=== PATIENT | male | born 1970 | race Caucasian/White ===

== ENCOUNTER 2023-08-24 17:16 | Emergency (ER) | payer OTHER ==
[~2023-08-24] VITALS: Ht 175.3 cm; Wt 75.0 kg
[~2023-08-24 17:16] MED LIST: INSLAN SQ; LOSA-381 PO
[2023-08-24 17:18] VITALS: BP 114/71; PULSE 79; RESP 18; TEMP 98.3
[2023-08-24] MEDS ORDERED: ATOR10TA69 PO (17:21)
[2023-08-24] MEDS ORDERED: METF-446 PO (17:21)
[2023-08-24] MEDS ORDERED: EMPA10TA3 PO (17:28)
[2023-08-24 17:40] LABS: GLUCOMETER DEV NAME(LOC) ER.7; GLUCOSE,POINT OF CARE 374 MG/DL (70-110)
[2023-08-24] MEDS ORDERED: LOSA-382 PO (20:22)
[2023-08-24] MEDS: CEPHALEXIN MONOHYDRATE 500 MG CAPSULE PO ONE (20:24)
[2023-08-24] MEDS: DOXYCYCLINE HYCLATE 100 MG TABLET PO ONE (20:24)
[2023-08-24] MEDS: ACETAMINOPHEN 500 MG TABLET PO ONE (20:24)
[2023-08-24] MEDS: INSULIN REGULAR, HUMAN 100 UNITS/ML SQ ONE (20:32)
[2023-08-24] MEDS ORDERED: CLOT15CR29 TP (21:15)
[2023-08-24] MEDS ORDERED: CEPH-558 PO (21:15)
[2023-08-24] MEDS ORDERED: ACET-66 PO (21:15)
[2023-08-24] MEDS ORDERED: DOXY-354 PO (21:15)
[2023-08-24 23:46] LABS: GLUCOMETER DEV NAME(LOC) ERT.5; GLUCOSE,POINT OF CARE 316 MG/DL (70-110)
[2023-08-24 23:46] LABS: GLUCOMETER DEV NAME(LOC) ERT.5; GLUCOSE,POINT OF CARE 274 MG/DL (70-110)
== END 2023-08-24 23:00 | disposition home or self-care (01) ==
LOC: EMS 17:16
DX: L02.211 Cutaneous abscess of abdominal wall (principal); E11.65 Type 2 diabetes mellitus with hyperglycemia; N47.7 Other inflammatory diseases of prepuce; I10 Essential (primary) hypertension
CPT/HCPCS: 99284; 10160; 82962; 96372; J1815